=== PATIENT | female | born 1950 | race Caucasian/White ===

== ENCOUNTER → 2022-11-09 | Outpatient (CLI) | payer MEDICARE ==
[~2022-11-09] MED LIST: ALPR.25T PO; ALPR0.2550 PO; CLCX200C PO; CYAN25003 SL; CYCL10TA9 PO; DOXE75CA PO; DOXE75CA2 PO; ESCT10T PO; FLUO20CA25 PO; FLUO20CA48 PO; INSU100I30 SC; IRON DEXTRAN 1,000 MG/NS 250 ML IVPB IV ONE; IRON DEXTRAN 25 MG/NS 6.25 ML TOTAL VOLUME IV ONE; LEVO125T6 PO; LEVO200T6 PO; LEVO50TA6 PO; LEVO750T PO; LIOT5TAB3 PO; LISI20TA PO; LISI20TA26 PO; LOVA20TA2 PO; LVT.15T PO; MAGN400T39 PO; METF-865 PO; MNTL10T PO; MTF500T PO; MULT-1029 PO; OMEP20CA12 PO; OMEP20CA18 PO; OXYC1CAP3 PO; SAXA5TAB PO
[2022-11-09 10:58] VITALS: BP 134/59
== END ==
LOC: SDC 10:34
PROVIDERS: ATTEND Pediatrics
DX: D63.8 Anemia in other chronic diseases classified elsewhere (principal)
CPT/HCPCS: 96365